=== PATIENT | male | born 1975 | race Caucasian/White ===

== ENCOUNTER 2018-11-08 14:25 | Emergency (ER) | payer OTHER ==
--- NOTE | 2018-11-08 14:21 | EDPHY ---
H & P Time Seen by Provider: 11/08/18 14:34 Constitutional: Initial Vital Signs Temperature (C) 37.1 C 11/08/18 14:29 Heart Rate 87 11/08/18 14:29 Respiratory Rate 16 11/08/18 14:29 Blood Pressure 140/78 H 11/08/18 14:29 O2 Sat (%) 98 11/08/18 14:29 O2 Delivery Mode Room Air Allergies/Adverse Reactions: Penicillins Allergy (Verified 01/10/15 21:07) Home Medications: Medication Instructions Recorded Albuterol [Proventil Inhaler HFA 2 puffs IH Q4 PRN 12/23/14 (*)] Diclofenac Sodium 1% [Voltaren Gel] 1 shante TP QID 12/23/14 Pantoprazole Sodium [Protonix 40mg 40 mg PO DAILY 12/23/14 (*)] Beclomethasone Qvar 80 [Qvar 80] 2 puffs IH BID 01/10/15 Lurasidone HCl [Latuda] 80 mg PO HS 01/11/15 Ramelteon [Rozerem] 8 mg PO HS 01/11/15 Cranston Carbonate [Cranston 300 mg PO DAILY #0 cap 01/14/15 Carbonate Cap 300 mg (*)] Cranston Carbonate [Cranston 600 mg PO HS #0 cap 01/14/15 Carbonate Cap 300 mg (*)] lamoTRIgine [LamICTAL 100 MG (*)] 100 mg PO DAILY #0 tab 01/14/15 lamoTRIgine [LamICTAL 100 MG (*)] 150 mg PO HS #0 tab 01/14/15 Medical Decision Making ED Course/Re-evaluation: CHIEF COMPLAINT: Psychiatric evaluation HISTORY OF PRESENT ILLNESS: The patient is a 43 y/o male with a history of bipolar disorder arriving via EMS on an M1 hold for a psychiatric evaluation. The patient presented to [facility] where he stated he was hearing voices and that he was in a witness protection program. Due to these comments, they placed him on an M1 hold for paranoia and schizoaffective disorder. The patient only states he has a history of bipolar disorder, for which he takes numerous medications. No homicidal or suicidal ideations. No fever, headache, body aches, lightheadedness, chest pain , heart palpitations, shortness of breath, cough, abdominal pain, urinary or bowel complaints, numbness, paresthesias. REVIEW OF SYSTEMS: A comprehensive 10 system review of systems is otherwise negative aside from elements mentioned in the history of present illness and medical decision making. PHYSICAL EXAM: General Appearance: Alert, well hydrated, appropriate, and non-toxic appearing. Head: Atraumatic without scalp tenderness or obvious injury Eyes: Pupils equal, round, reactive to light and accommodation, EOMI, no trauma , no injection. Ears: Clear bilaterally, no perforation, normal landmarks Nose: Atraumatic, no rhinorrhea, clear. Throat: There is no erythema or exudates, no lesions, normal tonsils, mucus membranes moist. Neck: Supple, 2+ carotid upstroke, nontender, no lymphadenopathy. Respiratory: No retractions, no distress, no wheezes, and no accessory muscle use. Lungs are clear to auscultation bilaterally. Cardiovascular: Regular rate and rhythm, no murmurs, rubs, or gallops. Bilateral carotid, radial, dorsalis pedis, and posterior tibial pulses intact. Good capillary refill all extremities. Gastrointestinal: Abdomen is soft, nontender, non-distended, no masses, no rebound, no guarding, no peritoneal signs. Musculoskeletal: Normal active ROM of all extremities, atraumatic. Neurological: Alert, appropriate, and interactive. The patient has normal DTRs and non-focal cranial nerves, motor, sensory, and cerebellar exam. Skin: No rashes, good turgor, no nodules on palpation. Psych: Agitated. No homicidal or suicidal ideations. Past medical history: Bipolar disorder Past surgical history: Denies Family history: Denies Social history: Lives in [place], single, employed DIFFERENTIAL DIAGNOSIS: The differential diagnosis for the patient's depression included but was not limited to functional and major depression, situational depression, medication side effect, drugs, and alcohol abuse. MEDICAL DECISION MAKING: The patient is a 43 y/o male with a history of bipolar disorder arriving via EMS on an M1 hold for a psychiatric evaluation. The patient presented to [facility] where he stated he was hearing voices and that he was in a witness protection program. The patient only states he has a history of bipolar disorder , for which he takes numerous medications. No homicidal or suicidal ideations. He agrees to having lab work performed. Patient is in no acute distress and is hemodynamically stable. We are awaiting psychiatric team's evaluation. Patient has known history of psychiatric disorders and is here for evaluation. 2024: Patient care turned over to Dr. Talley at shift change pending pending placement. (Matthieu Tobias) Other Provider: [address] Talley pending placement. 2329 pain patient has been accepted to [facility] by Dr. Campos. I have completed the EMTALA. (Jackson Lobato) - Data Points Laboratory Results: Laboratory Results 11/08/18 14:40 11/08/18 14:40 Medications Given: Discontinued Medications Albuterol Sulfate (Proventil Inh Prepack) 1 mdi TAKEHOME EDNOW ONE Stop: 11/08/18 23:57 Last Admin: 11/09/18 00:00 Dose: 1 mdi Gabapentin (Neurontin) 600 mg PO EDNOW ONE Stop: 11/08/18 22:44 Last Admin: 11/08/18 22:52 Dose: 600 mg Lamotrigine (Lamictal) 150 mg PO EDNOW ONE Stop: 11/08/18 22:44 Last Admin: 11/08/18 23:59 Dose: 150 mg Quetiapine Fumarate (Seroquel) 400 mg PO EDNOW ONE Stop: 11/08/18 22:44 Last Admin: 11/08/18 22:52 Dose: 400 mg Trazodone HCl (Trazodone) 50 mg PO EDNOW ONE Stop: 11/08/18 22:43 Last Admin: 11/08/18 22:52 Dose: 50 mg Trazodone HCl (Trazodone) 50 mg PO EDNOW ONE Stop: 11/08/18 22:58 Last Admin: 11/08/18 22:58 Dose: 50 mg Departure - Departure Disposition: Other Psych, Not Ekaterina Clinical Impression: Acute psychosis Condition: Fair Referrals: Patient,NotPresent [Unknown] - As per Instructions Report Scribed for: Matthieu Tobias Report Scribed by: Sabine Shah Date of Report: 11/08/18 Time of Report: 14:34
[2018-11-08 14:54] LABS: PLATELET COUNT 279 10^3/uL (150-400)
--- NOTE | 2018-11-08 20:16 | ASMTLCPROG ---
Notes Note: Notes: Pt's rights were read at [facility]. Pt declined to sign his rights. This specifications writer provided pt with a copy of his rights and orginal was placed on the chart. Date Signed: 11/08/2018 08:15 PM Electronically Signed By:Charlotte Lawson
[2018-11-08] MEDS ORDERED: traZODone 50 MG TAB PO ONE ×2 (22:42→22:57)
[2018-11-08] MEDS ORDERED: QUEtiapine FUMARATE 200 MG TAB PO ONE (22:43)
[2018-11-08] MEDS ORDERED: lamoTRIgine 100 MG TAB PO ONE (22:43)
[2018-11-08] MEDS ORDERED: GABAPENTIN 300 MG CAP PO ONE (22:43)
[2018-11-08] MEDS ORDERED: traZODone 50 MG TAB ONE (22:55)
[2018-11-08] MEDS ORDERED: ALBUTEROL INH PREPACK MDI TAKEHOME ONE ×2 (23:53→23:56)
[2018-11-09 00:21] VITALS: BP 113/65
== END 2018-11-09 00:13 ==
LOC: EDUNIT#
DX: F23 Brief psychotic disorder (principal); F31.9 Bipolar disorder, unspecified
CPT/HCPCS: 80305; G0480